=== PATIENT | female | born 1930 | race Caucasian/White ===

== ENCOUNTER 2016-09-28 22:01 | Emergency (ER) | payer BC, OTHER ==
[~2016-09-28] VITALS: Ht 167.6 cm; Wt 86.5 kg
[~2016-09-28 22:01] MED LIST: ADVIN25/60 INH; ASPEC81 PO; ATOR-26 PO; CETI10TA99 PO; CITA20TA4 PO; FURO80TA63 PO; HYDR-713 PO; METO-452 PO; OXGN; POTA-74 PO
[2016-09-28 22:15] VITALS: TEMP 37.2; Ht 167.6 cm; Wt 86.5 kg
[2016-09-29 00:10] VITALS: BP 134/76; PULSE 82; O2SAT 96
--- NOTE | 2016-09-29 00:23 | EMERGENCY ROOM VISIT NOTE ---
ED Visit Note First contact with patient: 22:14 I have personally seen and evaluated the patient with the physician clinical education assistant. I agree with the diagnostic/management decisions and have personally been involved in these decisions and agree with the diagnosis.
--- NOTE | 2016-09-29 03:55 | EMERGENCY ROOM VISIT NOTE ---
History First contact with patient: 22:14 Chief Complaint: FALL Stated Complaint: FALL History of Present Illness The patient is a 86 year old female who presents to the Emergency Room with complaints of fall who sustained a head injury. Patient states she tripped and fell in the kitchen. She is supposed to walk with a walker and has not been doing this. She is fallen a few times. This is not new for her. Patient complains of a mild headache, one out of 10, nothing makes it better or worse, to the occipital region where the contusion is present at. Patient is on a baby aspirin. Patient denies loss of conscious, neck pain, chest pain, dyspnea , abdominal pain, numbness, tingling, weakness or any other medical complaints. Review of Systems See HPI for pertinent positives & negatives. A total of 10 systems reviewed and were otherwise negative. Past Medical/Surgical History Medical Problems: (1) Aortic valve sclerosis Hypertension Social History Smoking Status: Former Smoker Smokeless Tobacco Use: No Alcohol Use: occasionally Drug Use: none Housing Status: lives alone Current/Historical Medications Scheduled Aspirin Enteric Coated (Ecotrin Or Generic *), 81 MG PO DAILY Atorvastatin (Lipitor), 80 MG PO DAILY Cetirizine Hcl (Zyrtec Allergy), 10 MG PO DAILY Citalopram Hydrobromide (Citalopram Hydrobromide), 20 MG PO DAILY Fluticasone Prop/Salmeterol (Advair Diskus 250/50 60 Dose), 1 PUFF INH BID Furosemide (Lasix), 80 MG PO DAILY Home O2 Therapy (Oxygen), 2 LITERS NA PRN Metoprolol Succinate (Toprol Xl), 50 MG PO DAILY Potassium Chloride (Potassium Chloride Er), 10 MEQ PO TID Scheduled PRN Hydrocodone/Acetaminophen 7.5MG/750MG (Vicodin 7.5MG/750MG), 1 TABLET PO Q4-6 HRS PRN Allergies Coded Allergies: Sulfa Drugs (Verified Allergy, Unknown, 09/28/16) Physical Exam Vital Signs Date Time Temp Pulse Resp B/P (MAP) Pulse Ox O2 Delivery O2 Flow Rate FiO2 09/29/16 00:10 82 20 134/76 96 09/28/16 23:13 76 20 153/95 93 Nasal Cannula 2.0 09/28/16 22:15 37.2 78 18 154/80 93 Room Air Pain Rating (0-10): 3.0 Physical Exam PHYSICAL EXAM: VITALS: Vitals are noted on the nurse's note and reviewed by myself. Vital signs mildly hypertensive. GENERAL: Pleasant female, in no acute distress, nondiaphoretic, well-developed well-nourished. SKIN: Contusion to the occipital region The~ skin was without obvious lacerations or abrasions. Capillary reflex less than 2 seconds. HEAD: Normocephalic atraumatic. EARS: External auditory canals clear, tympanic membranes pearly fischer without erythema or effusion bilaterally. No hemotympanums. No key sign. No mastoid tenderness. EYES: Pupils equal round and reactive to light and accommodation. Conjunctivae without injection, sclerae without icterus. Extraocular movements intact. NOSE: Patent, turbinates without inflammation or discharge. No sinus tenderness. No septal hematoma or bleeding. FACE: No facial bone tenderness. Full range of motion of the jaw without tenderness. MOUTH: Mucous membranes moist. Pharynx without erythema or exudate. Uvula midline. Airway patent. Tongue does not deviate. NECK: Supple without nuchal rigidity. Cervical spine is nontender. Full range of motion of the neck without tenderness. No JVD. HEART: Regular rate and rhythm LUNGS: Clear to auscultation bilaterally without wheezes, rales or rhonchi. No dullness to percussion. No retractions or accessory muscle use. No chest wall tenderness. ABDOMEN: Positive bowel sounds x 4. Normal tympanic percussion. Soft, nontender, without masses or organomegaly. No guarding or rebound tenderness. MUSCULOSKELETAL: No tenderness of the thoracic or lumbar spine. No tenderness with pelvic rocking. Full range of motion without tenderness to palpation in all extremities. Strength 5/5 throughout. Peripheral pulses 2+. NEURO: Patient was alert and oriented to person place and time. Normal Mini- Mental status exam. Normal sensation to light and sharp touch. Cerebellar function intact. No focal neurological deficits. Medical Decision & Procedures ED Course Prior records/ancillary studies reviewed. Triage Nursing notes reviewed. Additional history obtained from family. The patient's history was concerning for traumatic head injury Differential diagnosis: Etiologies such as concussion, contusion, fracture, subdural hematoma, epidural hematoma, intraparenchymal hemorrhage, as well as other traumatic pathologies were entertained. Physical examination findings: As above. ER treatment provided: By mouth fluids On reassessment the patient felt better. Diagnostics interpreted by me: Imaging studies: Head and cervical CT negative for fracture or bleed per radiology Exam and history seem consistent with mild head injury. Patient was strongly encouraged to always ambulate with her walker. She is advised to monitor her blood pressure. She is advised to follow-up family care in a few days or here in the ER sooner for headache, fevers, weakness, worsening signs or symptoms or as needed. Patient was neurovascularly and neurologically intact. No other injuries are noted. She is well-appearing. She is demanding to leave. She is discharged with her family and they are staying with her tonight. By the evaluation outlined above emergent etiologies such as fracture, subdural hematoma, epidural hematoma, intraparenchymal hemorrhage, as well as others were deemed relatively unlikely. The pt informed about the findings as listed above. All questions were answered and pleased with the treatment. Return instructions were outlined and the patient was discharged in stable condition. case reviewed with my attending Referral: The patient was referred back to their primary care physician for follow-up in 2 to 3 days for a recheck of the current condition. Medical Decision As above Impression Primary Impression: Fall Additional Impressions: Scalp hematoma Head injury Departure Information Dispostion Home / Self-Care Condition GOOD Referrals Dari Arias M.D. (PCP) Forms HOME CARE DOCUMENTATION FORM, IMPORTANT VISIT INFORMATION Patient Instructions My [facility], ED Head Injury Closed Additional Instructions Always use your walker when walking. Read head injury handout and return for any symptoms. Tylenol 1000 mg as needed for pain (Maximum 3000 mg Tylenol in 24 hr period). Avoid alcohol and contact sports/activities for one week and follow up with family doctor prior to returning to these activities if still symptomatic. Ice and elevate head. If your symptoms persist more than a week then follow up with the concussion clinic. Call [phone]. Follow-up with family care in one to 2 days. Return to ER sooner for headache, fevers, confusion, worsening signs or symptoms or as needed. Problem Qualifiers Primary Impression: Fall Encounter type: initial encounter Qualified Codes: W19.XXXA - Unspecified fall, initial encounter Additional Impressions: Scalp hematoma Encounter type: initial encounter Qualified Codes: S00.03XA - Contusion of scalp, initial encounter Head injury Encounter type: initial encounter Qualified Codes: S09.90XA - Unspecified injury of head, initial encounter
--- NOTE | 2016-09-29 06:55 | DIAGNOSTIC IMAGING REPORT ---
CT OF THE HEAD WITHOUT CONTRAST CLINICAL HISTORY: Fall with head injury. COMPARISON STUDY: Head CT October 05, 2012 and MRI of the brain October 08, 2012. TECHNIQUE: Helical axial images of the head were obtained without IV contrast. Automated exposure control was utilized for the study. FINDINGS: No acute intracranial hemorrhage, midline shift or mass effect is present. Ventricular system is stable. Basilar cisterns are patent. There are no extra-axial collections. White matter hypodensity suggests small vessel disease. There is a moderate to large right posterior scalp contusion. There is no calvarial fracture. As before, the left mastoids are partially opacified and there are postsurgical findings. This is unchanged. IMPRESSION: 1. No acute intracranial findings. 2. Right posterior scalp contusion. No calvarial fracture. Electronically signed by: Austin Wong M.D. 09/29/2016 6:54 AM Dictated Date/Time: 09/29/2016 6:49 AM
--- NOTE | 2016-09-29 07:12 | DIAGNOSTIC IMAGING REPORT ---
CT SCAN OF THE CERVICAL SPINE CLINICAL HISTORY: Fall. COMPARISON STUDY: CT scan of the cervical spine dictated 04/13/2012. TECHNIQUE: CT scan of the cervical spine is performed from the skull base to the upper thoracic spine. Images are reviewed in the axial, sagittal, and coronal planes. IV contrast was not administered for this examination. CT DOSE: 1033.26 mGy.cm FINDINGS: Skeletal structures: The skeletal structures are osteopenic. There is no evidence of fracture or subluxation involving the cervical spine. Vertebral body height is maintained. There is minimal anterolisthesis at C3-C4 and C4-C5. Minimal retrolisthesis is seen at C5-C6. There is straightening of cervical lordosis with reversal centered at C4-C5. The odontoid process and lateral masses are intact. The atlantoaxial articulation is preserved. The spinous processes appear intact. Anterior osteophytes are noted in the lower cervical region. There is moderate multilevel cervical spondylosis. Uncovertebral and facet arthropathy contribute to neural foraminal narrowing at most levels. Intervertebral discs: There is advanced degenerative disc space narrowing seen at C5-C6 and C6-C7. Moderate narrowing is noted at C4-C5. Central canal: Posterior disc osteophyte complexes from C4 to C5 through C6-C7 likely contribute to acquired compromise of the central canal. Soft tissues: The prevertebral and paraspinous soft tissues are within normal limits. A 13 mm nodule is present in the right lobe of the thyroid gland. There is atherosclerotic calcification of the carotid bulbs. Calvarium: The visualized calvarium at the skull base appears intact. Mastoid: The right mastoid air cells were not visualized. There is a large left mastoid effusion. Lung apices: Intralobular septal thickening is noted at the lung apices. Apical lung parenchyma is otherwise clear as visualized. IMPRESSION: 1. There is no evidence of fracture or subluxation involving the cervical spine. 2. Osteopenia and spondylotic change as above. 3. Large left mastoid effusion Electronically signed by: Emil Montanez M.D. 09/29/2016 7:11 AM Dictated Date/Time: 09/29/2016 7:08 AM
== END 2016-09-29 00:10 | disposition home or self-care (01) ==
LOC: EDBD 22:01 → C.EDA 22:02
DX: S00.03XA Contusion of scalp, initial encounter (principal); R51 Headache; W19.XXXA Unspecified fall, initial encounter; Y92.000 Kitchen of unspecified non-institutional (private) residence as the place of occurrence of the external cause; M50.322 Other cervical disc degeneration at C5-C6 level; M50.323 Other cervical disc degeneration at C6-C7 level; I10 Essential (primary) hypertension; Z79.899 Other long term (current) drug therapy; Z87.891 Personal history of nicotine dependence